=== PATIENT | male | born 1995 | race African-American/Black ===

== ENCOUNTER 2018-07-13 11:22 | Emergency (ER) | payer SELFPAY ==
[~2018-07-13] VITALS: Ht 190.5 cm; Wt 68.0 kg
--- NOTE | 2018-07-13 11:40 | NUR ---
MSE DONE BY DR MÁRQUEZ IN ROOM 03A.
[2018-07-13] MEDS ORDERED: IBUPROFEN 600 MG TABLET ONE (11:44)
[2018-07-13] MEDS ORDERED: IBUPROFEN 600 MG TABLET PO ONE (11:45)
--- NOTE | 2018-07-13 12:34 | NUR ---
Patient discharged to home in stable conditon & brisk stedy gait Written and verbal after care instructions given to patient. Patient verbalizes understanding of instructions.
== END 2018-07-13 12:36 | disposition home or self-care (01) ==
LOC: ER 11:24
DX: R07.89 Other chest pain (principal)
CPT/HCPCS: 71101; A4663